=== PATIENT | male | born 1950 | race Caucasian/White ===

== ENCOUNTER → 2017-04-16 | Outpatient (CLI) | payer MEDICARE, OTHER ==
[~2017-04-16] MED LIST: ACET-709 PO; ACET650S12 PR; ALBU2.5V11 NEB; ASCO120P2 PO; ASPI325T4 PO; BECL8.7H NAS; BIOT25004 PO; BIOT5CAP2 PO; BISA10SU2 PR; BUTA-193 PO; CA C1TAB39 PO; CELE200C PO; CHOL5000 PO; DEXT50DI3 IV; ENAL2.5T IV; ENOX40SY4 SQ; FLUT1DIS3 INH; FOLI-17 PO; FURO10DI IV; GLUC500T8 PO; GLUT25PO4 INJ; GUAI600T53 PO; HYDR-3240 PO; HYDR2DIS IV; KRIL500C PO; LUTE20CA PO; MERO1PIG IV; METH750T2 PO; METO25TA2 PO; MULT-252 PO; NAPR-763 PO; NAPR500T3 PO; NIAC500T9 PO; OMEG-14 PO; ONDA4AMP IV; PANT40TA5 PO; PRED10TA PO; PYRI200T4 PO; RED600CA2 PO; SAW160CA2 PO; SELENIUM PO; SODI1PAC12 NAS; SULF1TAB24 PO; TADA20TA PO; TEST200V3 INJ; TRAZ100T15 PO; UBID100C24 PO; UBID200C4 PO; VITA1TAB16 PO; VITAMIN E PO; [UNRECOGNIZED DRUG - OTHER] PO; testosterone INJ; vitamin b 12 PO; vitamin b 6 PO
== END | disposition home or self-care (01) ==
LOC: RAD 09:50
PROVIDERS: ATTEND Internal Medicine
DX: R13.10 Dysphagia, unspecified (principal)
CPT/HCPCS: 74230

== ENCOUNTER → 2018-01-03 | Outpatient (CLI) | payer MEDICARE, OTHER ==
[~2018-01-03] MED LIST changes: +ASPI325T17 PO; -ASPI325T4 PO; -BIOT25004 PO; +BIOT25005 PO; -BIOT5CAP2 PO; +BIOT5CAP3 PO; +GLUC500T11 PO; -GLUC500T8 PO; -GUAI600T53 PO; +GUAI600T80 PO; -LUTE20CA PO; +LUTE20CA2 PO; -NAPR500T3 PO; +NAPR500T4 PO; +REGADENOSON 0.4 MG/5 ML SYRINGE ONE; -SAW160CA2 PO; +SAW160CA4 PO; -UBID200C4 PO; +UBID200C7 PO
== END | disposition home or self-care (01) ==
LOC: CFH 07:46
PROVIDERS: ATTEND Internal Medicine Cardiovascular Disease
DX: I21.19 ST elevation (STEMI) myocardial infarction involving other coronary artery of inferior wall (principal); I10 Essential (primary) hypertension
CPT/HCPCS: 78452; 93017; A9502; J2785

== ENCOUNTER 2019-03-02 05:35 | Inpatient (IN) | payer MEDICARE, OTHER ==
[~2019-03-02] VITALS: Ht 174 cm; Wt 100.5 kg
[~2019-03-02 05:35] MED LIST changes: +NAPR-685 PO; -NAPR500T4 PO; -REGADENOSON 0.4 MG/5 ML SYRINGE ONE; +TRAZ-137 PO; -TRAZ100T15 PO
--- NOTE | 2019-03-02 06:10 | NUR ---
PT WOKE UP WITH CHEST PAIN THIS MORNING. PT SAYS HE HAS BEEN HAVING EPIGASTIC AND ABDOMINAL PAIN FOR PAST FEW DAYS ALONG WITH CHILLS. DIARRHEA STARTED YESTERDAY. DENIES ANY NAUSEA OR VOMITING.
[2019-03-02] MEDS ORDERED: SODIUM CHLORIDE FLUSH 10ML SYR IVF ONE (06:30)
--- NOTE | 2019-03-02 06:52 | NUR ---
REPORT GIVEN TO DIDI BRADSHAW.
[2019-03-02 06:59] LABS: INTERNATIONAL NORMALIZED RATIO 1.03 (0.93-1.1); PROTHROMBIN TIME 10.8 Seconds (9.6-11.5)
[2019-03-02 07:00] LABS: ALBUMIN 4.3 g/dL (3.4-5.0); ANION GAP 9 mmol/L (5-15); CALCIUM 9.7 mg/dL (8.5-10.1); CHLORIDE 108 mmol/L (98-107)
[2019-03-02 07:01] LABS: MEAN CORPUSCULAR HEMOGLOBIN 20.4 pg (27.5-34.5); MEAN CORPUSCULAR HGB CONC 30.2 g/dL (33.2-36.2); MEAN CORPUSCULAR VOLUME 67.4 fL (81-97); MEAN PLATELET VOLUME 7.8 fL (7.4-10.4); PLATELET COUNT 367 x10^3/uL (130-400); RED BLOOD COUNT 6.35 x10^6/uL (4.38-5.82); RED CELL DISTRIBUTION WIDTH 20.5 % (9.4-14.8)
[2019-03-02 07:04] LABS: ALANINE AMINOTRANSFERASE 19 U/L (12-78); ALKALINE PHOSPHATASE 46 U/L (45-117); BILIRUBIN,TOTAL 1.5 mg/dL (0.2-1.0); CREATININE 1.43 mg/dL (0.7-1.3); TOTAL PROTEIN 7.4 g/dL (6.4-8.2); TROPONIN I < 0.015 ng/mL (0.000-0.045)
[2019-03-02 07:11] LABS: MD YES
[2019-03-02 07:13] LABS: BASOS#(MANUAL) 0.19 x10^3/uL (0-0.1); BASOS% (MANUAL) 1 % (0-1); LYMPH#(MANUAL) 0.93 x10^3/uL (1-3.4); LYMPHS% (MANUAL) 5 % (22-44); MONOS#(MANUAL) 1.11 x10^3/uL (0.3-2.7); MONOS% (MANUAL) 6 % (2-9); SEG#(MANUAL) 16.28 x10^3/uL (1.8-6.8); SEGS% (MANUAL) 88 % (42-75)
[2019-03-02 07:14] LABS: <PLATELET ESTIMATE> ADEQUATE; <PLT MORPHOLOGY> NORMAL PLT MORPH; ANISOCYTOSIS 1+; MICROCYTOSIS 1+; POLYCHROMASIA 1+
[2019-03-02] MEDS ORDERED: OMNIPAQUE 350 MG/ML, 100ML BOTTLE ONE (07:25)
[2019-03-02 07:50] LABS: MICROSCOPIC AUTO
--- NOTE | 2019-03-02 07:55 | NUR ---
HOLDING PO MEDS FOR SBO
[2019-03-02] MEDS ORDERED: MAALOX/HYOSCYAMINE/LIDOCAINE 45 ML BTL PO ONE (08:00)
[2019-03-02] MEDS ORDERED: AMLO2.5T5 PO (08:23)
[2019-03-02] MEDS ORDERED: NAPR-685 PO (08:24)
[2019-03-02 08:30] LABS: CULTURE INDICATED? YES
[2019-03-02] MEDS ORDERED: SODIUM CHLORIDE 0.9% 1,000 ML IV ONE (08:40)
[2019-03-02] MEDS ORDERED: POTASSIUM CHLORIDE 20 MEQ in SODIUM CHLORIDE 0.9% 1,000 ML IV ONE (08:42)
[2019-03-02] MEDS ORDERED: SODIUM CHLORIDE FLUSH 10ML SYR IVF PRN (09:00)
[2019-03-02] MEDS ORDERED: HYDROmorphone 2 MG/ML, 1ML IVPush PRN (09:00)
[2019-03-02] MEDS ORDERED: ONDANSETRON 2MG/ML, 2ML IVPush ONE ×2 (09:00→14:30)
[2019-03-02] MEDS ORDERED: HYDROmorphone 1 MG/ML, 1ML VIAL ONE (09:20)
[2019-03-02] MEDS ORDERED: ONDANSETRON 2MG/ML, 2ML ONE (09:34)
--- NOTE | 2019-03-02 09:42 | NUR ---
SBAR TO KATEY BRADSHAW VIA TELEPHONE
[2019-03-02] MEDS ORDERED: BUTALB/APAP/CAFFEINE 50MG/325MG/40MG PO PRN (10:00)
[2019-03-02 10:09] VITALS: BP 130/82
[2019-03-02] MEDS: SODIUM CHLORIDE 0.9% 1,000 ML IV SCH (11:17)
[2019-03-02] MEDS: CEFTRIAXONE PMX 2GM/50ML 50 ML IV SCH (12:48)
[2019-03-02 13:43] VITALS: BP 105/75
[2019-03-02] MEDS: HYDROmorphone 1 MG/ML, 1ML INJ IV PRN (13:58)
[2019-03-02] MEDS: METRONIDAZOLE PMX 500MG/100ML 100 ML IV SCH ×2 (13:58→21:47)
[2019-03-02] MEDS: PROCHLORPERAZINE 5 MG/ML, 2ML IV PRN (13:58)
[2019-03-02 18:37] VITALS: BP 135/80
[2019-03-02] MEDS: NIACIN 500 MG TABLET.ER PO SCH (20:33)
[2019-03-02] MEDS: METHOCARBAMOL 750 MG TABLET PO SCH (20:33)
[2019-03-02] MEDS: AMLODIPINE 2.5 MG TABLET PO SCH (20:33)
[2019-03-02] MEDS: PANTOPROZOLE 40MG TABLET PO SCH (20:33)
[2019-03-02] MEDS: BENZOCAINE AEROSOL SPRAY 20%, 60ML TP PRN (23:18)
[2019-03-03 01:30] VITALS: BP 108/69
[2019-03-03] MEDS: METRONIDAZOLE PMX 500MG/100ML 100 ML IV SCH ×3 (05:07→21:28)
[2019-03-03] MEDS: BENZOCAINE AEROSOL SPRAY 20%, 60ML TP PRN ×2 (06:03→11:00)
[2019-03-03 07:58] VITALS: BP 122/69
[2019-03-03 08:01] LABS: MEAN CORPUSCULAR HEMOGLOBIN 19.7 pg (27.5-34.5); MEAN CORPUSCULAR VOLUME 68.2 fL (81-97); MEAN PLATELET VOLUME 8.5 fL (7.4-10.4); PLATELET COUNT 363 x10^3/uL (130-400); RED BLOOD COUNT 5.99 x10^6/uL (4.38-5.82); RED CELL DISTRIBUTION WIDTH 19.9 % (9.4-14.8)
[2019-03-03 08:02] LABS: ALANINE AMINOTRANSFERASE 24 U/L (12-78); ALBUMIN 3.7 g/dL (3.4-5.0); ANION GAP 6 mmol/L (5-15); CALCIUM 8.2 mg/dL (8.5-10.1); CHLORIDE 111 mmol/L (98-107); CREATININE 1.47 mg/dL (0.7-1.3)
[2019-03-03 08:04] LABS: MEAN CORPUSCULAR HGB CONC 28.9 g/dL (33.2-36.2)
[2019-03-03 08:09] LABS: ALKALINE PHOSPHATASE 47 U/L (45-117); BILIRUBIN,TOTAL 1.3 mg/dL (0.2-1.0); TOTAL PROTEIN 6.9 g/dL (6.4-8.2)
[2019-03-03] MEDS: METHOCARBAMOL 750 MG TABLET PO SCH ×2 (08:49→20:18)
[2019-03-03] MEDS: NIACIN 500 MG TABLET.ER PO SCH ×3 (08:49→20:20)
[2019-03-03] MEDS: AMLODIPINE 2.5 MG TABLET PO SCH (08:49)
[2019-03-03] MEDS: SODIUM CHLORIDE 0.9% 1,000 ML IV SCH ×3 (08:49→13:18)
[2019-03-03] MEDS: PANTOPROZOLE 40MG TABLET PO SCH (08:49)
[2019-03-03] MEDS: FOLIC ACID 1 MG TABLET PO SCH (08:49)
[2019-03-03] MEDS: CHOLECALCIFEROL 5,000u TAB PO SCH (08:50)
[2019-03-03] MEDS: MULTIVITAMIN 1 TABLET PO SCH (08:50)
[2019-03-03 08:51] LABS: BASOPHILS # (AUTO) 0.02 x10^3/uL (0-0.1); BASOPHILS % (AUTO) 0 % (0-1); EOSINOPHILS # (AUTO) 0.16 x10^3/uL (0-0.4); EOSINOPHILS % (AUTO) 1 % (1-7); LYMPHOCYTES # (AUTO) 0.71 x10^3/uL (1-3.4); LYMPHOCYTES % (AUTO) 5 % (22-44); MD SCAN; MONOCYTES # (AUTO) 1.46 x10^3/uL (0.2-0.8); MONOCYTES % (AUTO) 10 % (2-9); NEUTROPHILS # (AUTO) 12.35 x10^3/uL (1.8-6.8); NEUTROPHILS % (AUTO) 84 % (42-75)
[2019-03-03] MEDS ORDERED: PHARMACY MAY ADJ FOR RENAL FX MC PRN (10:30)
[2019-03-03] MEDS: FAMOTIDINE 20 MG/2 ML IVPush SCH ×2 (11:00→20:19)
[2019-03-03] MEDS: PROCHLORPERAZINE 5 MG/ML, 2ML IV PRN ×2 (11:00→17:54)
[2019-03-03] MEDS: HYDROmorphone 1 MG/ML, 1ML INJ IV PRN (11:27)
[2019-03-03] MEDS: CEFTRIAXONE PMX 2GM/50ML 50 ML IV SCH (12:22)
[2019-03-03 12:50] VITALS: BP 145/64
[2019-03-03 18:23] LABS: CLOSTRIDIUM DIFFICILE ANTIGEN NEGATIVE; CLOSTRIDIUM DIFFICILE TOXIN NEGATIVE (Negative)
[2019-03-03 20:39] VITALS: BP 114/67
[2019-03-04 02:30] VITALS: BP 105/68
[2019-03-04] MEDS: METRONIDAZOLE PMX 500MG/100ML 100 ML IV SCH ×3 (05:57→22:04)
[2019-03-04] MEDS: PROCHLORPERAZINE 5 MG/ML, 2ML IV PRN (06:12)
[2019-03-04 06:20] VITALS: BP 105/66
[2019-03-04 06:22] LABS: ALANINE AMINOTRANSFERASE 23 U/L (12-78); ALBUMIN 3.3 g/dL (3.4-5.0); ANION GAP 7 mmol/L (5-15); CALCIUM 8.3 mg/dL (8.5-10.1); CHLORIDE 112 mmol/L (98-107); CREATININE 1.27 mg/dL (0.7-1.3)
[2019-03-04 06:24] LABS: ALKALINE PHOSPHATASE 40 U/L (45-117); BILIRUBIN,TOTAL 0.7 mg/dL (0.2-1.0); TOTAL PROTEIN 6.3 g/dL (6.4-8.2)
[2019-03-04] MEDS ORDERED: HYDROmorphone 2 MG/ML, 1ML IV PRN (06:30)
[2019-03-04 06:38] LABS: MEAN CORPUSCULAR HEMOGLOBIN 20.4 pg (27.5-34.5); MEAN CORPUSCULAR VOLUME 68.5 fL (81-97); MEAN PLATELET VOLUME 8.9 fL (7.4-10.4); PLATELET COUNT 324 x10^3/uL (130-400); RED BLOOD COUNT 5.46 x10^6/uL (4.38-5.82); RED CELL DISTRIBUTION WIDTH 20.2 % (9.4-14.8)
[2019-03-04 06:40] LABS: MEAN CORPUSCULAR HGB CONC 29.7 g/dL (33.2-36.2)
[2019-03-04 06:41] LABS: BASOPHILS # (AUTO) 0.02 x10^3/uL (0-0.1); BASOPHILS % (AUTO) 0 % (0-1); EOSINOPHILS # (AUTO) 0.13 x10^3/uL (0-0.4); EOSINOPHILS % (AUTO) 1 % (1-7); LYMPHOCYTES # (AUTO) 1.16 x10^3/uL (1-3.4); LYMPHOCYTES % (AUTO) 9 % (22-44); MD SCAN; MONOCYTES # (AUTO) 1.13 x10^3/uL (0.2-0.8); MONOCYTES % (AUTO) 9 % (2-9); NEUTROPHILS # (AUTO) 10.26 x10^3/uL (1.8-6.8); NEUTROPHILS % (AUTO) 81 % (42-75)
[2019-03-04] MEDS: NIACIN 500 MG TABLET.ER PO SCH ×2 (10:22→19:57)
[2019-03-04] MEDS: CHOLECALCIFEROL 5,000u TAB PO SCH (10:23)
[2019-03-04] MEDS: FOLIC ACID 1 MG TABLET PO SCH (10:23)
[2019-03-04] MEDS: MULTIVITAMIN 1 TABLET PO SCH (10:23)
[2019-03-04] MEDS: METHOCARBAMOL 750 MG TABLET PO SCH ×2 (10:24→20:22)
[2019-03-04] MEDS: FAMOTIDINE 20 MG/2 ML IVPush SCH (10:24)
[2019-03-04 12:44] VITALS: BP 129/78
[2019-03-04] MEDS: SODIUM CHLORIDE 0.9% 1,000 ML IV SCH (12:45)
[2019-03-04] MEDS: CEFTRIAXONE PMX 2GM/50ML 50 ML IV SCH (14:00)
[2019-03-04 19:55] VITALS: BP 122/71
[2019-03-04] MEDS: FAMOTIDINE 20 MG TABLET PO SCH (20:22)
[2019-03-05] MEDS: SODIUM CHLORIDE 0.9% 1,000 ML IV SCH ×3 (01:23→21:47)
[2019-03-05 01:34] VITALS: BP 130/77
[2019-03-05 02:45] LABS: OCCULT BLOOD NEGATIVE (NEGATIVE)
[2019-03-05 05:27] LABS: MEAN CORPUSCULAR HEMOGLOBIN 20.5 pg (27.5-34.5); MEAN CORPUSCULAR VOLUME 68.4 fL (81-97); MEAN PLATELET VOLUME 8.5 fL (7.4-10.4); PLATELET COUNT 306 x10^3/uL (130-400); RED BLOOD COUNT 5.44 x10^6/uL (4.38-5.82); RED CELL DISTRIBUTION WIDTH 19.8 % (9.4-14.8)
[2019-03-05 05:30] LABS: CHLORIDE 111 mmol/L (98-107)
[2019-03-05 05:35] LABS: ALBUMIN 3.3 g/dL (3.4-5.0); ANION GAP 7 mmol/L (5-15); CALCIUM 7.9 mg/dL (8.5-10.1); CREATININE 1.08 mg/dL (0.7-1.3)
[2019-03-05] MEDS: METRONIDAZOLE PMX 500MG/100ML 100 ML IV SCH (05:49)
[2019-03-05 05:50] LABS: MEAN CORPUSCULAR HGB CONC 29.9 g/dL (33.2-36.2)
[2019-03-05 05:51] LABS: ANISOCYTOSIS 1+; BASOPHILS # (AUTO) 0.04 x10^3/uL (0-0.1); BASOPHILS % (AUTO) 0 % (0-1); EOSINOPHILS # (AUTO) 0.16 x10^3/uL (0-0.4); EOSINOPHILS % (AUTO) 1 % (1-7); LYMPHOCYTES # (AUTO) 1.07 x10^3/uL (1-3.4); LYMPHOCYTES % (AUTO) 8 % (22-44); MD MORPH REVIEW ONLY; MICROCYTOSIS 1+; MONOCYTES # (AUTO) 0.74 x10^3/uL (0.2-0.8); MONOCYTES % (AUTO) 6 % (2-9); NEUTROPHILS # (AUTO) 11.42 x10^3/uL (1.8-6.8); NEUTROPHILS % (AUTO) 85 % (42-75)
[2019-03-05 05:52] LABS: OVALOCYTES 1+; POLYCHROMASIA 1+
[2019-03-05 05:53] LABS: <PLATELET ESTIMATE> ADEQUATE; <PLT MORPHOLOGY> NORMAL PLT MORPH
[2019-03-05 06:21] VITALS: BP 119/48
[2019-03-05] MEDS: METHOCARBAMOL 750 MG TABLET PO SCH ×2 (08:39→21:44)
[2019-03-05] MEDS: MULTIVITAMIN 1 TABLET PO SCH (08:40)
[2019-03-05] MEDS: FOLIC ACID 1 MG TABLET PO SCH (08:40)
[2019-03-05] MEDS: FAMOTIDINE 20 MG TABLET PO SCH ×2 (08:40→21:43)
[2019-03-05] MEDS: NIACIN 500 MG TABLET.ER PO SCH ×2 (08:40→21:39)
[2019-03-05] MEDS: CHOLECALCIFEROL 5,000u TAB PO SCH (08:40)
[2019-03-05] MEDS: FERROUS SULFATE 325 MG TABLET PO SCH (10:02)
[2019-03-05] MEDS ORDERED: IPRATROPIUM NASAL 0.03%, 30ML NAS PRN (12:00)
[2019-03-05 12:38] VITALS: BP 126/70
[2019-03-05 19:17] VITALS: BP 129/75
[2019-03-05] MEDS: GUAIFENESIN ER 600 MG TABLET PO SCH (21:40)
[2019-03-06 01:54] VITALS: BP 142/77
[2019-03-06] MEDS: BUTALB/APAP/CAFFEINE 50MG/325MG/40MG PO PRN (03:26)
[2019-03-06 05:06] LABS: ALBUMIN 3.3 g/dL (3.4-5.0); ANION GAP 5 mmol/L (5-15); CALCIUM 8.2 mg/dL (8.5-10.1); CHLORIDE 112 mmol/L (98-107); CREATININE 1.13 mg/dL (0.7-1.3)
[2019-03-06 08:13] LABS: MEAN CORPUSCULAR HEMOGLOBIN 20.5 pg (27.5-34.5); MEAN CORPUSCULAR VOLUME 68.5 fL (81-97); MEAN PLATELET VOLUME 9.3 fL (7.4-10.4); PLATELET COUNT 330 x10^3/uL (130-400); RED CELL DISTRIBUTION WIDTH 20.4 % (9.4-14.8)
[2019-03-06 08:30] LABS: BASOPHILS # (AUTO) 0.02 x10^3/uL (0-0.1); BASOPHILS % (AUTO) 0 % (0-1); EOSINOPHILS # (AUTO) 0.16 x10^3/uL (0-0.4); EOSINOPHILS % (AUTO) 2 % (1-7); LYMPHOCYTES # (AUTO) 1.42 x10^3/uL (1-3.4); LYMPHOCYTES % (AUTO) 13 % (22-44); MD SCAN; MONOCYTES # (AUTO) 1.04 x10^3/uL (0.2-0.8); MONOCYTES % (AUTO) 10 % (2-9); NEUTROPHILS # (AUTO) 7.91 x10^3/uL (1.8-6.8); NEUTROPHILS % (AUTO) 75 % (42-75)
[2019-03-06 08:39] LABS: MEAN CORPUSCULAR HGB CONC 29.9 g/dL (33.2-36.2)
[2019-03-06 08:43] VITALS: BP 123/81
[2019-03-06] MEDS: METHOCARBAMOL 750 MG TABLET PO SCH ×2 (08:56→20:35)
[2019-03-06] MEDS: FAMOTIDINE 20 MG TABLET PO SCH ×2 (08:57→20:35)
[2019-03-06] MEDS: GUAIFENESIN ER 600 MG TABLET PO SCH ×2 (08:57→20:35)
[2019-03-06] MEDS: FERROUS SULFATE 325 MG TABLET PO SCH (08:58)
[2019-03-06] MEDS: MULTIVITAMIN 1 TABLET PO SCH (08:58)
[2019-03-06] MEDS: FOLIC ACID 1 MG TABLET PO SCH (08:58)
[2019-03-06] MEDS: SODIUM CHLORIDE 0.9% 1,000 ML IV SCH (08:58)
[2019-03-06] MEDS: CHOLECALCIFEROL 5,000u TAB PO SCH (08:58)
[2019-03-06] MEDS: NIACIN 500 MG TABLET.ER PO SCH ×2 (08:58→20:35)
[2019-03-06 14:21] VITALS: BP 141/84
[2019-03-06 18:51] VITALS: BP 130/77
[2019-03-07 01:17] VITALS: BP 124/88
[2019-03-07 05:40] LABS: CALCIUM 8.3 mg/dL (8.5-10.1); CHLORIDE 112 mmol/L (98-107)
[2019-03-07 05:45] LABS: ALANINE AMINOTRANSFERASE 18 U/L (12-78); ALBUMIN 3.2 g/dL (3.4-5.0); ALKALINE PHOSPHATASE 38 U/L (45-117); ANION GAP 5 mmol/L (5-15); BILIRUBIN,TOTAL 0.6 mg/dL (0.2-1.0); CREATININE 1.08 mg/dL (0.7-1.3); TOTAL PROTEIN 6.4 g/dL (6.4-8.2)
[2019-03-07 06:08] LABS: MEAN CORPUSCULAR HEMOGLOBIN 20.6 pg (27.5-34.5); MEAN CORPUSCULAR VOLUME 68.8 fL (81-97); MEAN PLATELET VOLUME 8.4 fL (7.4-10.4); PLATELET COUNT 245 x10^3/uL (130-400); RED BLOOD COUNT 5.74 x10^6/uL (4.38-5.82); RED CELL DISTRIBUTION WIDTH 20.9 % (9.4-14.8)
[2019-03-07 06:10] LABS: MEAN CORPUSCULAR HGB CONC 29.9 g/dL (33.2-36.2)
[2019-03-07 06:26] VITALS: BP 143/85
[2019-03-07 06:50] LABS: MD YES
[2019-03-07 06:51] LABS: EOS#(MANUAL) 0.18 x10^3/uL (0.0-0.4); EOS% (MANUAL) 2 % (1-7); LYMPH#(MANUAL) 2.02 x10^3/uL (1-3.4); LYMPHS% (MANUAL) 23 % (22-44); MONOS#(MANUAL) 1.06 x10^3/uL (0.3-2.7); MONOS% (MANUAL) 12 % (2-9); SEG#(MANUAL) 5.54 x10^3/uL (1.8-6.8); SEGS% (MANUAL) 63 % (42-75)
[2019-03-07 06:52] LABS: ANISOCYTOSIS 2+; HYPOCHROMIA 1+; OVALOCYTES 2+
[2019-03-07 06:53] LABS: <PLATELET ESTIMATE> ADEQUATE; <PLT MORPHOLOGY> NORMAL PLT MORPH; MICROCYTOSIS 1+; POLYCHROMASIA 1+
[2019-03-07 08:00] VITALS: BP 117/75
[2019-03-07] MEDS: CHOLECALCIFEROL 5,000u TAB PO SCH (09:00)
[2019-03-07] MEDS: FERROUS SULFATE 325 MG TABLET PO SCH (09:00)
[2019-03-07] MEDS: MULTIVITAMIN 1 TABLET PO SCH (09:00)
[2019-03-07] MEDS: FOLIC ACID 1 MG TABLET PO SCH (09:00)
[2019-03-07] MEDS: NIACIN 500 MG TABLET.ER PO SCH ×2 (09:00→20:55)
[2019-03-07] MEDS: GUAIFENESIN ER 600 MG TABLET PO SCH ×2 (09:00→20:54)
[2019-03-07] MEDS: METHOCARBAMOL 750 MG TABLET PO SCH ×2 (09:09→20:54)
[2019-03-07] MEDS: D5%-0.45% NACL 1,000 ML IV SCH ×2 (09:09→15:55)
[2019-03-07] MEDS: FAMOTIDINE 20 MG TABLET PO SCH ×2 (09:10→20:54)
[2019-03-07] MEDS ORDERED: SODIUM CHLORIDE 0.9% 1,000 ML IV SCH (11:00)
[2019-03-07 12:59] VITALS: BP 129/85
[2019-03-07 18:36] VITALS: BP 112/68
[2019-03-08 00:20] VITALS: BP 113/59
[2019-03-08] MEDS: D5%-0.45% NACL 1,000 ML IV SCH ×2 (00:21→07:58)
[2019-03-08] MEDS: BUTALB/APAP/CAFFEINE 50MG/325MG/40MG PO PRN (02:05)
[2019-03-08 06:58] VITALS: BP 129/80
[2019-03-08] MEDS: FOLIC ACID 1 MG TABLET PO SCH (07:58)
[2019-03-08] MEDS: MULTIVITAMIN 1 TABLET PO SCH (07:58)
[2019-03-08] MEDS: NIACIN 500 MG TABLET.ER PO SCH (07:58)
[2019-03-08] MEDS: FERROUS SULFATE 325 MG TABLET PO SCH (07:58)
[2019-03-08] MEDS: CHOLECALCIFEROL 5,000u TAB PO SCH (07:59)
[2019-03-08] MEDS: METHOCARBAMOL 750 MG TABLET PO SCH (08:23)
[2019-03-08] MEDS: GUAIFENESIN ER 600 MG TABLET PO SCH (08:23)
[2019-03-08] MEDS: FAMOTIDINE 20 MG TABLET PO SCH (08:23)
[2019-03-08] MEDS ORDERED: FERR324T5 PO (09:47)
== END 2019-03-08 12:05 | disposition home or self-care (01) | DRG 388 ==
LOC: ED 06:09 → EDIP 08:42 → 4NOR 10:04
PROVIDERS: ADMIT Family Medicine; ATTEND Family Medicine
PROC: 0D9670Z Drainage of Stomach with Drainage Device, Via Natural or Artificial Opening (ICD-10-PCS; principal; 2019-03-02)
DX: K56.50 Intestinal adhesions [bands], unspecified as to partial versus complete obstruction (principal); N17.0 Acute kidney failure with tubular necrosis; D50.9 Iron deficiency anemia, unspecified; D72.829 Elevated white blood cell count, unspecified; E86.0 Dehydration; I10 Essential (primary) hypertension; K21.9 Gastro-esophageal reflux disease without esophagitis; Z96.659 Presence of unspecified artificial knee joint; M10.9 Gout, unspecified; E66.01 Morbid (severe) obesity due to excess calories; Z79.899 Other long term (current) drug therapy; Z68.33 Body mass index [BMI] 33.0-33.9, adult
CPT/HCPCS: 36415; 71045; 74018; 74177; 80048; 80053; 81001; 82040; 82272; 82728; 83540; 83550; 83605; 83690; 83735; 84145; 84466; 84484; 85025; 85610; 85730; 87040; 87086; 87324; 93005; 99285; G0378; J0696; J1170; J2405; J3480; Q9967; J0780; J3490; J7030

== ENCOUNTER → 2019-11-23 | Outpatient (CLI) | payer MEDICARE, OTHER ==
[~2019-11-23] VITALS: Ht 175.3 cm; Wt 105.5 kg
[~2019-11-23] MED LIST changes: +AMLO2.5T5 PO; -BISA10SU2 PR; +BISA10SU4 PR; +CHOL4PAC2 PO; +DIPHENHYDRAMINE 50 MG/ML, 1ML ONE; +EPINEPHRINE 1 MG/ML, 1ML SQ PRN; +FERR324T5 PO; +IRON DEXTRAN COMPLEX 1,000 MG in SODIUM CHLORIDE 0.9% 250 ML IV ONE; +IRON DEXTRAN COMPLEX 25 MG in SODIUM CHLORIDE 0.9% 50 ML IV ONE; +TEST200V3 IM
[2019-11-23 08:00] VITALS: BP 153/71
[2019-11-23 14:00] VITALS: BP 144/88
== END | disposition home or self-care (01) ==
LOC: INFUSION 07:31
PROVIDERS: ATTEND Internal Medicine Gastroenterology
DX: D50.9 Iron deficiency anemia, unspecified (principal); K52.89 Other specified noninfective gastroenteritis and colitis; K21.9 Gastro-esophageal reflux disease without esophagitis; K29.70 Gastritis, unspecified, without bleeding; I25.9 Chronic ischemic heart disease, unspecified; I10 Essential (primary) hypertension
CPT/HCPCS: 96365; 96366; 96367; J1750; J7050

== ENCOUNTER 2021-02-24 11:32 | Outpatient (CLI) | payer MEDICARE, OTHER ==
[~2021-02-24 11:32] MED LIST changes: -DIPHENHYDRAMINE 50 MG/ML, 1ML ONE; -ENAL2.5T IV; +ENAL2.5T8 IV; -EPINEPHRINE 1 MG/ML, 1ML SQ PRN; -FOLI-17 PO; +FOLI1TAB32 PO; +HYDR-2214 PO; -HYDR-3240 PO; -IRON DEXTRAN COMPLEX 1,000 MG in SODIUM CHLORIDE 0.9% 250 ML IV ONE; -IRON DEXTRAN COMPLEX 25 MG in SODIUM CHLORIDE 0.9% 50 ML IV ONE; +METH-640 PO; -METH750T2 PO; -PANT40TA5 PO; +PANT40TA6 PO; +SULF-23 PO; -SULF1TAB24 PO; -TRAZ-137 PO; +TRAZ-175 PO
== END 2021-02-24 23:59 | disposition home or self-care (01) ==
LOC: ROC 11:32
PROVIDERS: ATTEND Radiology Radiation Oncology
DX: C61 Malignant neoplasm of prostate (principal); K21.9 Gastro-esophageal reflux disease without esophagitis; D50.0 Iron deficiency anemia secondary to blood loss (chronic); I25.9 Chronic ischemic heart disease, unspecified; I11.9 Hypertensive heart disease without heart failure
CPT/HCPCS: G0463

== ENCOUNTER 2021-06-27 07:17 | Outpatient (CLI) | payer MEDICARE, OTHER ==
[2021-06-27] MEDS ORDERED: LIDOCAINE/PF 1%, 30ML IVPB ONE (08:00)
== END 2021-06-27 23:59 | disposition home or self-care (01) ==
LOC: ROC 07:17
PROVIDERS: ATTEND Radiology Radiation Oncology
DX: Z51.0 Encounter for antineoplastic radiation therapy (principal); C61 Malignant neoplasm of prostate; I11.9 Hypertensive heart disease without heart failure; I25.9 Chronic ischemic heart disease, unspecified; K21.9 Gastro-esophageal reflux disease without esophagitis
CPT/HCPCS: 55876; 76942; 77332; A4648